=== PATIENT | male | born 1930 | race Caucasian/White ===

== ENCOUNTER 2016-12-08 00:21 | Emergency (ER) | payer MEDICARE ==
[2013-12-03 01:04] VITALS: BMI 29.7
[~2016-12-08 00:21] MED LIST: BACTROBAN 22 GM22 GM TP; COUMADIN4 MG PO; COUMADIN5 MG OR; HYDROCODONE-APA1 TAB PO; KLOR-CON 1010 MEQ PO; LASIX20 MG PO; LIPITOR40 MG PO; LOPID600 MG PO; LUMIGAN 0.01%2.5 ML EACH EYE; LUMIGAN 0.03 %2.5 ML EACH EYE; NORCO 10/325 TA1 TA1 OR; NORCO 10/325 TA1 TA1 PO; PRILOSEC20 MG PO; REMERON15 MG PO; RESTORIL15 MG PO; RESTORIL7.5 MG PO; TIMOPTIC 0.5 % O5 ML EACH EYE; VESICARE5 MG PO; ZYLOPRIM100 MG PO
[2016-12-08 05:03] LABS: APPEARANCE HAZY (CLEAR); BILIRUBIN NEGATIVE (NEGATIVE); COLOR YELLOW (YELLOW); GLUCOSE NEGATIVE (NEGATIVE); KETONE NEGATIVE (NEGATIVE); LEUKOCYTE ESTERASE 2+ (NEGATIVE); NITRITE NEGATIVE (NEGATIVE); PROTEIN TRACE mg/dL (NEGATIVE); SPECIFIC GRAVITY 1.015 (1.005-1.020); UROBILINOGEN NORMAL (NORMAL)
[2016-12-08 05:04] LABS: BACTERIA MODERATE /hpf (NONE SEEN); EPITHELIAL CELLS 0-5 /hpf (0-5); RED CELLS - URINE 0-5 /hpf (0-5)
[2016-12-08 05:25] LABS: BASOPHILS 0.8 % (0-2); HEMATOCRIT 39.6 % (42.0-54.0); HEMOGLOBIN 12.6 g/dL (13.5-17.5); IMMATURE GRANULOCYTES 0.2 % (0-5); LYMPHOCYTES 9.8 % (15-50); MCH 28.2 pg (26.0-34.0); MCHC 31.8 g/dL (31.0-37.0); MCV 88.6 fL (80.0-100.0); MEAN PLATELET VOLUME 9.5 fL (7.4-10.4); MONOCYTES 7.1 % (2-11); NEUTROPHILS 80.1 % (40-80); RBC 4.47 10x6/uL (4.20-6.10); RDW 14.2 % (11.5-14.5); WBC 11.8 10x3/uL (4.8-10.8)
[2016-12-08 05:36] LABS: PLATELET COUNT 306 10x3/uL (130-400)
[2016-12-08 05:40] LABS: ALBUMIN 3.5 g/dL (3.4-5.0); ANION GAP 15.3 mmol/L (8-16); BILIRUBIN - TOTAL 0.47 mg/dL (0.2-1.3); CALCIUM 9.7 mg/dL (8.5-10.1); CARBON DIOXIDE 27.9 mmol/L (21.0-32.0); CREATININE - SERUM 1.7 mg/dL (0.6-1.3); POTASSIUM - SERUM 4.2 mmol/L (3.5-5.1); PROTEIN - SERUM 7.8 g/dL (6.4-8.2)
== END 2016-12-08 06:08 | disposition home or self-care (01) ==
LOC: D.ER 00:21
PROVIDERS: Emergency Medicine
DX: S09.90XA Unspecified injury of head, initial encounter (principal); W19.XXXA Unspecified fall, initial encounter; S16.1XXA Strain of muscle, fascia and tendon at neck level, initial encounter; D64.9 Anemia, unspecified; E86.0 Dehydration; S37.009A Unspecified injury of unspecified kidney, initial encounter; F17.200 Nicotine dependence, unspecified, uncomplicated; I10 Essential (primary) hypertension

== ENCOUNTER → 2016-12-25 21:01 | Outpatient (CLI) | payer MEDICARE ==
[2013-12-03 01:04] VITALS: BMI 29.7
[2016-12-25 21:40] LABS: INR 1.31 (0.85-1.17); PROTIME 16.2 SECONDS (11.6-15.0)
== END | disposition home or self-care (01) ==
LOC: D.LABREF 21:01
PROVIDERS: Family Medicine
DX: I49.9 Cardiac arrhythmia, unspecified (principal)

== ENCOUNTER → 2017-01-05 13:22 | Outpatient (CLI) | payer MEDICARE ==
[2013-12-03 01:04] VITALS: BMI 29.7
[2017-01-05 13:46] LABS: INR 1.09 (0.85-1.17)
== END | disposition home or self-care (01) ==
LOC: D.LABREF 13:22
PROVIDERS: Family Medicine
DX: I49.9 Cardiac arrhythmia, unspecified (principal); Z51.81 Encounter for therapeutic drug level monitoring; Z79.01 Long term (current) use of anticoagulants

== ENCOUNTER → 2017-01-12 14:07 | Outpatient (CLI) | payer MEDICARE ==
[2013-12-03 01:04] VITALS: BMI 29.7
[2017-01-12 16:14] LABS: INR 1.24 (0.85-1.17); PROTIME 15.5 SECONDS (11.6-15.0)
== END | disposition home or self-care (01) ==
LOC: D.LABREF 14:07
PROVIDERS: Family Medicine
DX: I49.9 Cardiac arrhythmia, unspecified (principal); Z79.01 Long term (current) use of anticoagulants

== ENCOUNTER → 2017-01-19 16:31 | Outpatient (CLI) | payer MEDICARE ==
[2013-12-03 01:04] VITALS: BMI 29.7
[2017-01-19 16:59] LABS: INR 1.16 (0.85-1.17); PROTIME 14.7 SECONDS (11.6-15.0)
== END | disposition home or self-care (01) ==
LOC: D.LABREF 16:31
PROVIDERS: Family Medicine
DX: Z51.81 Encounter for therapeutic drug level monitoring (principal); Z79.01 Long term (current) use of anticoagulants

== ENCOUNTER → 2017-01-29 10:40 | Outpatient (CLI) | payer MEDICARE ==
[2013-12-03 01:04] VITALS: BMI 29.7
[2017-01-29 12:25] LABS: INR 1.78 (0.85-1.17); PROTIME 20.7 SECONDS (11.6-15.0)
== END | disposition home or self-care (01) ==
LOC: D.LABREF 10:40
PROVIDERS: Family Medicine
DX: I49.9 Cardiac arrhythmia, unspecified (principal); Z79.01 Long term (current) use of anticoagulants

== ENCOUNTER → 2017-02-05 14:15 | Outpatient (CLI) | payer MEDICARE ==
[2013-12-03 01:04] VITALS: BMI 29.7
[2017-02-05 14:42] LABS: INR 2.6 (0.85-1.17)
== END | disposition home or self-care (01) ==
LOC: D.LABREF 14:15
PROVIDERS: Family Medicine
DX: Z79.01 Long term (current) use of anticoagulants (principal); I49.9 Cardiac arrhythmia, unspecified